=== PATIENT | female | born 1965 | race African-American/Black ===

== ENCOUNTER → 2017-04-10 | Outpatient (CLI) | payer OTHER ==
[2016-03-11 09:21] VITALS: BP 164/104
[~2017-04-10] MED LIST: ATEN25TA PO; BUTA1CAP29 PO; CIPR250T PO; CYCL10TA2 PO; CYCL5TAB PO; GABA-585 PO; HYDR12.53 PO; NAPR500T PO
--- NOTE | 2017-04-10 13:36 | RAD ---
DATE: 04/10/2017 EXAM: DIGITAL DIAGNOSTIC BILATERAL, BREAST LEFT HISTORY: Mass left breast COMPARISON: None This study was interpreted with the benefit of Computerized Aided Detection (CAD). FINDINGS: Breast Density: SCATTERED The breast parenchyma shows scattered fibroglandular densities. Breast parenchyma level B. The area of concern in the left breast was marked with a BB.. There is a triangular 1.5 cm mass in the left breast corresponding to the palpable abnormality. There are probable fatty elements associated with the mass and it is unlikely, given its mammographic appearance, to represent malignancy. The right breast is unremarkable and no suspect calcifications are seen in either breast. Targeted ultrasound to the palpable abnormality in the left breast was performed. Corresponding to the mammographic finding is a 3 cm mass. There appear to be both solid and cystic components associated with the mass. The ultrasound features are not suggestive of malignancy. In addition to ultrasound images submitted by the technologist a real-time examination was performed by me. I indicated to the patient that we could see a mass corresponding to what she felt. I indicated that I thought there was a very low probability that the mass was malignant but recommended biopsy for confirmation. IMPRESSION: Mass left breast. While the index of suspicion for malignancy is low based on the imaging findings, ultrasound-guided biopsy is suggested BI-RADS CATEGORY: 4 SUSPICIOUS ABNORMALITY-BIOPSY SHOULD BE CONSIDERED RECOMMENDED FOLLOW-UP: BIO BIOPSY RECOMMENDED PQRS compliance statement: Patient information was entered into a reminder system with a target due date soon for the next mammogram. Mammography is a sensitive method for finding small breast cancers, but it does not detect them all and is not a substitute for careful clinical examination. A negative mammogram does not negate a clinically suspicious finding and should not result in delay in biopsying a clinically suspicious abnormality. "Our facility is accredited by the [employer] Mammography Program."
== END | disposition home or self-care (01) ==
LOC: MAMMO 12:40
PROVIDERS: ATTEND Registered Nurse
DX: N63 Unspecified lump in breast (principal)
CPT/HCPCS: 76641; G0204; 77066

== ENCOUNTER → 2017-04-18 | Outpatient (CLI) | payer OTHER ==
[~2017-04-18] VITALS: Ht 175.3 cm; Wt 80.7 kg
[~2017-04-18] MED LIST changes: +AMIT50TA PO; +BECL8.7A6 IH; +LIDOCAINE 1% / SOD BICARB 8.4% 20 ML VIAL. IJ ONE; +PROAIR HFA8.5 GM INH; +SERT100T PO; +TRAZ100T12 PO
[2017-04-18 09:13] VITALS: BP 121/71
--- NOTE | 2017-04-19 13:35 | PATHOLOGY ---
PATHOLOGY REPORT * * * * * * * * FINAL DIAGNOSIS: Breast tissue, left breast mass core biopsies: - Fat necrosis, hemorrhage, reactive fibrosis, and chronic inflammation. (JPM:armand; 04/19/2017) COMMENT: There is no evidence of malignancy. REPORT ELECTRONICALLY SIGNED BY: Miguel Cleary M.D. DATE/TIME: 04/19/2017 13:35 * * * * * * * * GROSS PATHOLOGY: Received in formalin labeled "Jacobo Villagomez, left breast," are multiple needle cores of yellow-escobar fibrofatty tissue measuring 2.0 x 1.8 x 0.4 cm in aggregate dimensions. The tissue is submitted in its entirety in cassette A1. The cold ischemic time is 5 minutes. The total formalin fixation time is 12 hours and 20 minutes. (JPM; 04/18/17) INITIAL CPT CODE(S): A; 32211 Professional services [place] [address] Technical services performed by [facility] at [address] [place] [address]. SPECIMEN(S) RECEIVED: A.Left breast mass CLINICAL HISTORY: Left breast mass PATIENT: JACOBO VILLAGOMEZ /AGE: 108/02/1965 (Age: 51) PATIENT #: [id number] ALT CASE #: SPECIMEN COLLECTION DATE: 04/18/2017 SPECIMEN RECEIVED DATE: 04/18/2017 [facility] - [address] [place] [address] - PHONE: [phone] * * * END OF REPORT * * *
--- NOTE | 2017-04-19 15:04 | RAD ---
Ultrasound-guided vacuum-assisted left breast biopsy, 04/18/2017: History: Breast nodule Previous studies demonstrated a suspicious nodule at the 12:00 location in the left breast. Under local anesthesia, aseptic conditions and sonographic guidance the [employer] biopsy instrument was passed into this nodule via a lateral approach. Multiple 12-gauge vacuum-assisted core samples were obtained. A cylindrical biopsy marker was deposited at the biopsy site. The biopsy instrument was then removed and hemostasis obtained. Two-view postprocedural mammograms were then obtained on a separate digital mammographic unit to document position of the biopsy marker. There are new streaky densities at the biopsy site compatible with a small amount of biopsy-related hemorrhage. The patient tolerated the procedure well and left the department in good condition. The subsequent pathology report indicated the presence of fat necrosis and chronic inflammation, with no evidence of malignancy.
== END | disposition home or self-care (01) ==
LOC: US 08:53
PROVIDERS: ATTEND Registered Nurse
DX: R92.8 Other abnormal and inconclusive findings on diagnostic imaging of breast (principal)
CPT/HCPCS: 19081; 76942; C1713; G0206; 77065

== ENCOUNTER → 2017-05-04 | Outpatient (CLI) | payer OTHER ==
[2017-04-18 09:13] VITALS: BP 121/71
[~2017-05-04] MED LIST changes: -LIDOCAINE 1% / SOD BICARB 8.4% 20 ML VIAL. IJ ONE
--- NOTE | 2017-05-04 10:09 | RAD ---
Left breast ultrasound, 05/04/2017: History: Left breast lump A targeted ultrasound exam was performed of the area of clinical concern at the 12-1 o'clock location. This corresponds in location to the site of a biopsied breast nodule. Comparison is made to previous ultrasound images from 04/10/2017. A breast biopsy marker is now identified within the biopsied mass. The path results of the previous biopsy suggested that this was a benign process, either a fibroadenolipoma or an area of fat necrosis. There is a new 1.3 cm cystic area adjacent to the biopsy marker compatible with postbiopsy seroma/hematoma. There is an additional 1.3 cm adjacent structure containing low level internal echoes, also compatible with a hematoma. No other abnormality is seen. IMPRESSION: Small postbiopsy fluid collections as described above compatible with hematoma/seroma. Infection cannot be excluded. Clinical surveillance is suggested. BI-RADS 2-benign findings
== END | disposition home or self-care (01) ==
LOC: US 09:27
PROVIDERS: ATTEND Registered Nurse
DX: S20.02XA Contusion of left breast, initial encounter (principal); X58.XXXA Exposure to other specified factors, initial encounter; Y93.89 Activity, other specified; Y92.89 Other specified places as the place of occurrence of the external cause; Y99.8 Other external cause status
CPT/HCPCS: 76641

== ENCOUNTER 2017-05-27 11:51 | Emergency (ER) | payer OTHER ==
[~2017-05-27] VITALS: Ht 175.3 cm; Wt 80.7 kg
[2017-05-27 12:27] VITALS: BP 126/77
[2017-05-27] MEDS ORDERED: PRED20TA PO (12:37)
[2017-05-27] MEDS ORDERED: HYDR25CA75 PO (12:37)
--- NOTE | 2017-05-27 12:37 | PHYS DOC ---
Past Medical History Past Medical History: Asthma, Hypertension, Migraines, Other Additional Past Medical Histor: chronic back pain, nerve damage s/p back Past Surgical History: Hysterectomy, Tonsillectomy, Other Additional Past Surgical Histo: back sx Alcohol Use: Occasionally Drug Use: None Adult General Chief Complaint Chief Complaint: SKIN PROBLEM HPI HPI Patient is a 51 year old presents the ED complaining of allergic reaction 1 day. Patient states she ate Almonds yesterday and woke up with a rash over her upper extremities and lower x-rays. Describes the rash as itch, Rates it as 8 out of 10. Denies difficulty breathing, difficulty swallowing, tongue swelling, lip swelling, shortness of breath, chest pain or fever. Review of Systems Review of Systems Constitutional: Denies fever or chills [] Eyes: Denies change in visual acuity, redness, or eye pain [] HENT: Denies nasal congestion or sore throat [] Respiratory: Denies cough or shortness of breath [] Cardiovascular: No additional information not addressed in HPI [] GI: Denies abdominal pain, nausea, vomiting, bloody stools or diarrhea [] : Denies dysuria or hematuria [] Musculoskeletal: Denies back pain or joint pain [] Integument: Complains of rash. Denies skin lesions [] Neurologic: Denies headache, focal weakness or sensory changes [] Endocrine: Denies polyuria or polydipsia [] Allergies Allergies Allergies Coded Allergies Type Severity Reaction Last Updated Verified Penicillins Allergy Intermediate 03/11/16 Yes Sulfa (Sulfonamide Antibiotics) Allergy Intermediate Unknown 03/11/16 Yes latex Allergy Intermediate 03/11/16 Yes povidone-iodine Allergy Intermediate 03/11/16 Yes Physical Exam Physical Exam Constitutional: Well developed, well nourished, no acute distress, non-toxic appearance. [] HENT: Normocephalic, atraumatic, bilateral external ears normal, oropharynx moist, no oral exudates, nose normal. [] Eyes: PERRLA, EOMI, conjunctiva normal, no discharge. [] Neck: Normal range of motion, no tenderness, supple, no stridor. [] Cardiovascular:Heart rate regular rhythm, no murmur [] Lungs & Thorax: Bilateral breath sounds clear to auscultation [] Abdomen: Bowel sounds normal, soft, no tenderness, no masses, no pulsatile masses. [] Skin: Warm, dry, MACULAR ERYTHEMATOUS RASH TO UPPER AND LOWER EXTREMITIES CONSISTENT WITH ALLERGIC REACTION. [] Back: No tenderness, no CVA tenderness. [] Extremities: No tenderness, no cyanosis, no clubbing, ROM intact, no edema. [] Neurologic: Alert and oriented X 3, normal motor function, normal sensory function, no focal deficits noted. [] Psychologic: Affect normal, judgement normal, mood normal. [] Current Patient Data Vital Signs Vital Signs Date Time Temp Pulse Resp B/P (MAP) Pulse Ox O2 Delivery O2 Flow Rate FiO2 05/27/17 12:27 98.2 70 16 97 Room Air 98.2 EKG EKG [] Radiology/Procedures Radiology/Procedures [] Course & Med Decision Making Course & Med Decision Making Pertinent Labs and Imaging studies reviewed. (See chart for details) []Patient well-appearing on examination. Patient complaining of rash and itching. Patient has no trouble talking, breathing or swallowing. No anaphylactic reaction. Discussed fjvx-[id number] treatment. Patient prescribed prednisone and hydroxyzine. Discussed follow-up for allergy testing. Discussed reasons to return to the ED. Patient understands and agrees with plan. Dragon Disclaimer Dragon Disclaimer This electronic medical record was generated, in whole or in part, using a voice recognition dictation system. Departure Departure Impression: Primary Impression: Allergic reaction Disposition: 01 HOME, SELF-CARE Condition: STABLE Referrals: MARY NICHOLS APRN (PCP) Patient Instructions: Allergies, Generic, Allergy Tests, Food Allergy Scripts Hydroxyzine Pamoate (HYDROXYZINE PAMOATE) 25 Mg Capsule 1 CAP PO TID, #15 CAP Prov: KIRA TRAN 05/27/17 Prednisone (PREDNISONE) 20 Mg Tablet 2 TAB PO DAILY for 5 Days, #10 TAB Prov: KIRA TRAN 05/27/17 KIRA TRAN May 27, 2017 12:37
== END 2017-05-27 12:45 | disposition home or self-care (01) ==
LOC: ER 11:51
DX: T78.1XXA Other adverse food reactions, not elsewhere classified, initial encounter (principal); R21 Rash and other nonspecific skin eruption; J45.909 Unspecified asthma, uncomplicated; I10 Essential (primary) hypertension; G89.29 Other chronic pain; G43.909 Migraine, unspecified, not intractable, without status migrainosus; Z91.040 Latex allergy status; Z88.2 Allergy status to sulfonamides; Z88.0 Allergy status to penicillin; Z91.041 Radiographic dye allergy status; X58.XXXA Exposure to other specified factors, initial encounter
CPT/HCPCS: 99283

== ENCOUNTER 2018-11-09 09:03 | Emergency (ER) | payer OTHER ==
[~2018-11-09] VITALS: Ht 175.3 cm; Wt 95.3 kg
[~2018-11-09 09:03] MED LIST changes: +ALBU2.5V8 INH; -HYDR12.53 PO; +HYDR12.575 PO; +HYDR25CA75 PO; +NAPR-683 PO; -NAPR500T PO; +PRED20TA PO; -PROAIR HFA8.5 GM INH; +TRAZ-86 PO; -TRAZ100T12 PO
[2018-11-09 09:12] VITALS: BP 144/100
--- NOTE | 2018-11-09 09:28 | PHYS DOC ---
Past Medical History Past Medical History: Asthma, Hypertension, Migraines, Other Additional Past Medical Histor: chronic back pain, nerve damage s/p back Past Surgical History: Hysterectomy, Tonsillectomy, Other Additional Past Surgical Histo: back sx Alcohol Use: Occasionally Drug Use: None Adult General Chief Complaint Chief Complaint: Congestion HPI HPI 53-year-old female presents to ER with complaints of sinus tenderness, sinus congestion, and headache. She reports she has history of migraines however this is different as she is not sensitive to light and is having no nausea or vomiting. She reports she has had frontal and maxillary tenderness denies purulent sinus drainage, fever, or cough. She denies any ssiw-avd-[id number] medications today for symptoms. She denies nosebleeds, dizziness, or lightheadedness. She denies vision changes or eye pain. She reports she has had some bilateral ear pressure denies tinnitus. She is not a daily smoker. Review of Systems Review of Systems Constitutional: Denies fever or chills. Denies fatigue Eyes: Denies change in visual acuity, redness, or eye pain [] HENT: Denies sore throat. Reports bilat. ear pressure and sinus congestion. Respiratory: Denies cough or shortness of breath [] Cardiovascular: No additional information not addressed in HPI [] GI: Denies abdominal pain, nausea, vomiting : Denies urinary sxs Musculoskeletal: Denies back/neck pain or joint pain [] Integument: Denies rash or skin lesions [] Neurologic: Reports frontal JIMENEZ. Denies focal weakness or sensory changes. Denies dizziness Endocrine: Denies polyuria or polydipsia [] All other systems were reviewed and found to be within normal limits, except as documented in this note. Allergies Allergies Allergies Coded Allergies Type Severity Reaction Last Updated Verified Penicillins Allergy Intermediate 03/11/16 Yes Sulfa (Sulfonamide Antibiotics) Allergy Intermediate Unknown 03/11/16 Yes latex Allergy Intermediate 03/11/16 Yes povidone-iodine Allergy Intermediate 03/11/16 Yes ampicillin Allergy Unknown 11/09/18 Yes Physical Exam Physical Exam Constitutional: Well developed, well nourished, no acute distress, non-toxic appearance. [] HENT: Normocephalic, atraumatic, bilateral ears normal, oropharynx moist- no pharyngeal swelling/erythema, no oral exudates, nose normal- no swelling/ erythema bilat. nares. Tender on palp. maxillary/frontal sinuses without facial swelling Eyes: 3mm PERRLA, no nystagmus, conjunctiva normal, no discharge. [] Neck: Normal range of motion, no tenderness, supple, no stridor/gross adenopathy Cardiovascular: Heart rate regular rhythm, no murmur [] Lungs & Thorax: Bilateral breath sounds clear to auscultation. Resp. equal/ nonlabored Skin: Warm, dry, no erythema, no rash. [] Extremities: No tenderness, no cyanosis, no clubbing, ROM intact, no edema. [] Neurologic: Alert and oriented X 3, normal motor function, normal sensory function, no focal deficits noted. [] Psychologic: Affect normal, judgement normal, mood normal. [] Current Patient Data Vital Signs Vital Signs Date Time Temp Pulse Resp B/P (MAP) Pulse Ox O2 Delivery O2 Flow Rate FiO2 11/09/18 09:12 97.9 68 18 144/100 (115) 97 Room Air 97.9 EKG EKG [] Radiology/Procedures Radiology/Procedures [] Course & Med Decision Making Course & Med Decision Making Patient was evaluated in the ER for sinus congestion and headache. She reports this headache does not feel similar to previous migraines she has had the past. She reports she has not taken any uive-wfx-ibxtosu medications for her discomfort. On exam pt had maxillary and frontal sinus tenderness without facial swelling. Bilateral turbinates without swelling/erythema- no bilateral sinus drainage. Discussed sinus congestion option for treatment with patient she was offered dose of Afrin and Tylenol while in the ER as she is unable to take NSAIDs due to back surgery. Patient during discussion preferred no treatment while in the ER stating she would take Tylenol after she left the department and she would use Flonase as Afrin has irritated her sinuses in the past. Patient was in no visible distress while in the ER nontoxic in appearance and afebrile. Discussed rush-ryc-ddptbzy allergy medications for options for treatment as well as cool/warm compresses to sinuses. Discussed if symptoms persist or worsen she is to follow-up with her primary care for reevaluation and further care. Education provided on signs and symptoms to return to ER for and discharge instructions were discussed. Dragon Disclaimer Dragon Disclaimer This electronic medical record was generated, in whole or in part, using a voice recognition dictation system. Departure Departure Impression: Primary Impression: Sinus congestion Disposition: 01 HOME, SELF-CARE Condition: STABLE Referrals: MARY NICHOLS APRN (PCP) Patient Instructions: Headache and Allergies Additional Instructions: As discussed over the counter allergy medications such as Claritin, Molly or Zyrtec (examples) as directed on container. You can also try over the counter Flonase as directed for sinuses as directed on container. Cool and warm compresses every 3-4 hours for 20-30 minutes at a time across sinuses as needed. If symptoms persist or worsen follow-up with your primary doctor for re- evaluation and further care. ARTI CAO APRN Nov 09, 2018 09:28
== END 2018-11-09 09:37 | disposition home or self-care (01) ==
LOC: ER 09:03
DX: R09.81 Nasal congestion (principal); R51 Headache; H93.8X3 Other specified disorders of ear, bilateral; G43.909 Migraine, unspecified, not intractable, without status migrainosus; I10 Essential (primary) hypertension; J45.909 Unspecified asthma, uncomplicated; G89.29 Other chronic pain; Z90.89 Acquired absence of other organs; Z88.0 Allergy status to penicillin; Z88.2 Allergy status to sulfonamides; Z88.1 Allergy status to other antibiotic agents; Z91.041 Radiographic dye allergy status; Z91.040 Latex allergy status
CPT/HCPCS: 99281